=== PATIENT | female | born 1985 | race Hispanic/Latino ===

== ENCOUNTER 2023-04-25 08:25 | Emergency (ER) | payer OTHER ==
[~2023-04-25] VITALS: Ht 154.9 cm; Wt 79.8 kg
[2023-04-25 08:56] LABS: RAPID GROUP A STREP negative (NEGATIVE)
[2023-04-25 09:01] LABS: SARS-CoV-2, RNA, NAAT NEGATIVE SARS CoV-2 (NEGATIVE)
[2023-04-25] MEDS ORDERED: IBUPROFEN 400 MG TABLET PO ONE (09:30)
[2023-04-25] MEDS ORDERED: BENZONATATE 100 MG CAPSULE PO ONE (09:30)
[2023-04-25] MEDS ORDERED: ALBUTEROL 0.083% 2.5 MG/3 ML INH IH ONE (09:30)
[2023-04-25 09:36] LABS: BASOPHILS # (AUTO) 0.02 K/uL (0.00-0.20); BASOPHILS % (AUTO) 0.4 % (0.0-5.0); EOSINOPHILS # (AUTO) 0.15 K/uL (0.00-0.70); EOSINOPHILS % (AUTO) 3.3 % (0.0-8.0); HEMATOCRIT 39.7 % (36-48); IMMATURE GRANULOCYTE ABSOLUTE 0.01 K/uL (0-1); LYMPHOCYTES # (AUTO) 0.8 K/uL (1.0-4.8); LYMPHOCYTES % (AUTO) 17.6 % (21.0-51.0); MEAN CORPUSCULAR HEMOGLOBIN 29.6 pg (27.0-33.0); MEAN CORPUSCULAR VOLUME 89.6 fL (79-99); MONOCYTES # (AUTO) 0.7 K/uL (0.1-1.0); MONOCYTES % (AUTO) 15.4 % (3.0-13.0); NEUTROPHILS # (AUTO) 2.9 K/uL (1.8-7.7); NEUTROPHILS % (AUTO) 63.1 % (40.0-77.0); PLATELET COUNT (AUTO) 208 K/uL (130-400); RED BLOOD CELL COUNT(AUTO) 4.43 MIL/uL (4.00-5.50); RED CELL DISTRIBUTION WIDTH 12.5 % (11.0-15.5); WHITE BLOOD COUNT (AUTO) 4.6 K/uL (4.8-10.8)
[2023-04-25 09:47] LABS: CREATININE 0.6 mg/dL (0.5-1.5); POTASSIUM 3.8 mmol/L (3.5-5.1)
[2023-04-25 09:48] LABS: INFLUENZA TYPE A NEGATIVE FOR TYPE A (NEGATIVE); INFLUENZA TYPE B NEGATIVE FOR TYPE B (NEGATIVE)
[2023-04-25 09:51] VITALS: PULSE 96; RESP 21
[2023-04-25] MEDS ORDERED: ALBUHFA IH (11:28)
[2023-04-25] MEDS ORDERED: BENZ-39 PO (11:28)
[2023-04-25 11:36] VITALS: BP 131/78; PULSE 95; RESP 20; O2SAT 95
== END 2023-04-25 11:44 | disposition home or self-care (01) ==
LOC: EDH 08:25
DX: J20.8 Acute bronchitis due to other specified organisms (principal); Z20.822 Contact with and (suspected) exposure to COVID-19
CPT/HCPCS: 99284; 71045; 87635; 80048; 85025; 87880; 87804 ×2; 81025; 36415; 94640; C9803